=== PATIENT | male | born 1975 | race Caucasian/White ===

== ENCOUNTER 2021-06-07 18:37 | Inpatient (IN) | payer OTHER ==
[~2021-06-07] VITALS: Ht 170.2 cm; Wt 91.4 kg
[~2021-06-07 18:37] MED LIST: AZITHROMYCIN 2250 MG PO; DIABETES MEDICATION; GLUCOPHAGE1000 MG PO; IBUPROFEN 800800 M1 PO; NORCO 5-325 TA1 EACH PO; NOVOLIN 70100 UNIT/5 SUBQ; PREDNISONE 20 M20 M1 PO; PROAIR HFA8.5 GM IH
[2021-06-07 18:47] VITALS: BP 126/79
[2021-06-07 19:48] LABS: ABSOLUTE EOSINOPHILS 0.1 thou/uL (0.0-0.7); ABSOLUTE LYMPHOCYTES 1.1 thou/uL (0.8-5.3); ABSOLUTE MONOCYTES 0.4 thou/uL (0.0-1.2); ABSOLUTE NEUTROPHILS 2.7 thou/uL (1.6-8.1); BASOPHILS 0.5 %; EOSINOPHILS 1.4 %; HEMATOCRIT 41.8 % (42.0-52.0); HEMOGLOBIN 14.1 gm/dL (14.0-18.0); MCH 31.4 pg (26.0-34.0); MCHC 33.7 g/dL (28.0-37.0); MCV 93.2 fL (80.0-100.0); MONOCYTES 8.9 %; MPV 8.9 fl. (7.2-11.1); NUCLEATED RBCS 0 /100WBC; PLATELET COUNT* 62 thou/uL (150-400); POLYS 63.2 %; RBC 4.48 mil/uL (4.50-6.00); RDW-CV 18.1 % (10.5-14.5); WBC 4.2 thou/uL (4.0-11.0)
[2021-06-07 19:51] LABS: CALCIUM 7.8 mg/dL (8.5-10.1); CREATININE 0.7 mg/dL (0.6-1.3); POTASSIUM 3.6 mmol/L (3.5-5.1)
[2021-06-07 19:55] LABS: ALBUMIN 2.2 g/dL (3.4-5.0); TOTAL BILIRUBIN 1.5 mg/dL (<0.1-1.0)
[2021-06-07 20:41] LABS: URINE BLOOD 2+ (Negative); URINE CLARITY CLEAR; URINE COLOR DARK YELLOW; URINE GLUCOSE-RANDOM NEGATIVE (Negative); URINE KETONES TRACE (Negative); URINE LEUKOCYTES-REFLEX NEGATIVE (Negative); URINE NITRITE-REFLEX NEGATIVE (Negative); URINE PROTEIN NEGATIVE (Negative); URINE SPECIFIC GRAVITY 1.025 (1.005-1.030); URINE UROBILINOGEN >= 8.0 E.U./dl (0.2-1.0)
[2021-06-07 20:42] LABS: URINE BILIRUBIN 1+ (Negative)
[2021-06-07 20:45] LABS: ICTOTEST (BILI CONFIRMATORY) Positive (Negative)
[2021-06-07 20:50] LABS: BACTERIA-REFLEX 1-9 Few /HPF (None Seen); CASTS None Seen /LPF (None Seen); CRYSTALS None Seen /LPF (None Seen); SQUAMOUS 4-10 Moderate /LPF (0-3); URINE RBC 3-10 Few /HPF (0-2); URINE WBC-REFLEX 0-5 Rare /HPF (0-5)
[2021-06-07 20:51] LABS: PLATELET ESTIMATE DECREASED
[2021-06-07 21:54] VITALS: BP 118/75
[2021-06-08] VITALS (7 sets, daily range): BP systolic 110–122; BP diastolic 60–79
[2021-06-08] MEDS ORDERED: SEROQUEL 100 M100 M1 PO (23:20)
[2021-06-08] MEDS ORDERED: LIPITOR40 MG PO (23:21)
[2021-06-08] MEDS ORDERED: LISINOPRIL5 MG PO (23:22)
[2021-06-09] VITALS: BP 100/58
[2021-06-09] MEDS ORDERED: LANTUS SUBQ (00:23)
--- NOTE | 2021-06-09 04:19 | NUR ---
PT A&OX4, VSS ON ROOM AIR, IV SALINE LOCKED. SR ON TELE MONITOR. UP AD DAVID. PRN IV PAIN MED REQUESTED AND GIVEN ODDERED. PT RESTING IN BED, WILL CONTINUE TO MONITOR.
[2021-06-09 04:23] VITALS: BP 97/64
[2021-06-09 07:58] VITALS: BP 95/502
--- NOTE | 2021-06-09 10:13 | NUR ---
CM COMPLETED PT WITH PT WHO INDICATED HE LIVES AT HOME WITH HIS AND CHILDREN. PT HAS NO DMES. PT IS INDEPENDENT W/ADLS, PT IS EMPLOYEED AND DRIVES A VEHICLE. PT DENIES HX WITH HH OR SNF. CM TO CONT TO FOLLOW.
[2021-06-09 11:10] LABS: INR 1.3; PROTIME 13.2 Seconds (9.20-11.50)
[2021-06-09 13:11] VITALS: BP 115/67
--- NOTE | 2021-06-09 14:26 | NUR ---
INITIAL ASSESSMENT COMPLETED. VSS. NO NEW CONCERNS. SEE ASSESSMENT FOR FURTHER DETAILS.
== END 2021-06-09 16:20 | disposition left against medical advice (07) | DRG 442 ==
LOC: M.ERS 18:37 → M.TBA-ER 21:19 → M.2W 06-08 18:43
PROVIDERS: Internal Medicine; Physician Assistant; ADMIT Internal Medicine; ATTEND Internal Medicine
DX: B17.10 Acute hepatitis C without hepatic coma (principal); R18.8 Other ascites; E11.9 Type 2 diabetes mellitus without complications; F17.210 Nicotine dependence, cigarettes, uncomplicated; K74.60 Unspecified cirrhosis of liver; M72.2 Plantar fascial fibromatosis; R16.0 Hepatomegaly, not elsewhere classified; Z53.29 Procedure and treatment not carried out because of patient's decision for other reasons; Z20.822 Contact with and (suspected) exposure to COVID-19; Z86.19 Personal history of other infectious and parasitic diseases; Z82.49 Family history of ischemic heart disease and other diseases of the circulatory system